=== PATIENT | male | born 1945 | race Caucasian/White ===

== ENCOUNTER 2016-11-27 16:55 | Emergency (ER) | payer MEDICARE ==
[~2016-11-27] VITALS: Ht 177.8 cm; Wt 74.3 kg
[2016-11-27 17:01] VITALS: BP_SYST 148; BP_SYST 160; BP_DIAS 63; BP_DIAS 94; PULSE 65; PULSE 72; RESP 16; TEMP 97.7; TEMP 98.2; O2SAT 97
[2016-11-27] MEDS ORDERED: LISI20TA PO (17:27)
--- NOTE | 2016-11-27 18:11 | PD ---
HPI Chief Complaint: Cold / Flu Symptoms Time Seen by Provider: 17:56 Travel History International Travel<30 days: No Contact w/Intl Traveler<30days: No Traveled to known affect area: No History of Present Illness HPI This patient has been having runny nose and congestion and cough and sore throat and general malaise. Just completed a Z-Raj but doesn't feel any better so he came to see if "he needed to have anything cultured". Symptoms severity is mild. No alleviating factors PFSH Past Medical History Cardiovascular Problems: Yes (take htn meds prn) Diminished Hearing: No Hypertension: Yes Immunizations Current: Yes Tetanus Vaccination: < 5 Years Influenza Vaccination: No Past Surgical History Abdominal Surgery: Yes (hernia) Eye Surgery: Yes (catarct) Genitourinary Surgery: Yes (urolift for prostate) Tonsillectomy: Yes Social History Alcohol Use: Yes (2-3 week) Tobacco Use: No Substance Use: No Allergies-Medications (Allergen,Severity, Reaction): Coded Allergies: No Known Allergies (Verified Allergy, Unknown, 11/27/16) Reported Meds & Prescriptions Reported Meds & Active Scripts Active Reported Lisinopril-Hctz 20-12.5 Mg Tab 1 Tab PO DIRECTED Review of Systems General / Constitutional: No: Fever HENT: Positive: Rhinorrhea, Congestion, No: Headaches Respiratory: Positive: Cough Gastrointestinal: No: Diarrhea Physical Exam Narrative GENERAL: Well-nourished, well-developed patient in no apparent distress. SKIN: Focused skin assessment reveals no rash and nodules. Skin is Warm and dry. HEAD: Atraumatic. Normocephalic. EYES: Pupils equal and round. No scleral icterus. No injection or drainage. ENT: No nasal bleeding or discharge. Mucous membranes pink and moist. Throat clear NECK: Trachea midline. No JVD. No meningeal signs CARDIOVASCULAR: Regular rate and rhythm. No murmur appreciated. RESPIRATORY: No accessory muscle use. Clear to auscultation. Breath sounds equal bilaterally. GASTROINTESTINAL: Abdomen soft, non-tender, nondistended. Hepatic and splenic margins not palpable. MUSCULOSKELETAL: No obvious deformities. No clubbing. No cyanosis. No edema. NEUROLOGICAL: Awake and alert. No obvious cranial nerve deficits. Motor grossly within normal limits. Normal speech. PSYCHIATRIC: Appropriate mood and affect; insight and judgment normal. Data Data Last Documented VS Vital Signs Date Time Temp Pulse Resp B/P (MAP) Pulse Ox O2 Delivery O2 Flow Rate FiO2 11/27/16 17:27 97 Room Air 11/27/16 17:01 98.2 72 16 160/94 (116) MDM Medical Decision Making Medical Screen Exam Complete: Yes Emergency Medical Condition: Yes Medical Record Reviewed: Yes Differential Diagnosis Flu syndrome, URI, bronchitis Narrative Course I have reviewed the patient's electronic medical record. Stable for outpatient follow-up. I think he has a viral illness most likely. He is already completed Z-Raj I don't think doing cultures of anything at this point would be very helpful Recommend primary care follow-up Diagnosis Primary Impression: Acute viral syndrome Additional Instructions: The patient was advised to follow up with their physician and return if they worsen. Med/Other Pt SpecificInfo: Other Disposition: 01 DISCHARGE HOME Condition: Stable Vaughn Rivera MD Nov 27, 2016 18:11
== END 2016-11-27 18:17 | disposition home or self-care (01) ==
LOC: PHEFT 16:55
DX: B34.9 Viral infection, unspecified (principal); I10 Essential (primary) hypertension
CPT/HCPCS: 99281